=== PATIENT | female | born 1970 | race Caucasian/White ===

== ENCOUNTER → 2019-09-12 | Outpatient (CLI) | payer BC | LOC: BHSO 16:18 | DX: F33.42 Major depressive disorder, recurrent, in full remission (principal) | CPT/HCPCS: G0463 ==

== ENCOUNTER → 2020-01-31 | Outpatient (CLI) | payer BC | LOC: MC.RAD 12-05 10:00 | DX: Z12.31 Encounter for screening mammogram for malignant neoplasm of breast (principal) ==